=== PATIENT | female | born 1985 | race Caucasian/White ===

== ENCOUNTER 2016-10-14 19:35 | Inpatient (IN) | payer BC ==
[~2016-10-14] VITALS: Ht 157.5 cm; Wt 100.3 kg
[2016-10-14 20:27] VITALS: BP 117/69; PULSE 76; RESP 18; Ht 157.5 cm; Wt 100.3 kg
[2016-10-14] MEDS ORDERED: PRENAT PO (20:40)
--- NOTE | 2016-10-14 23:27 | RADRPT ---
PROCEDURE: OB ultrasound for biophysical profile CLINICAL INDICATION: Labor. TECHNIQUE: Multiple sonographic images of the pelvis were obtained. Transabdominal views of the g ravid uterus are available for review. The images were reviewed on a PACS workstation. COMPARISON: None FINDINGS: breathing movement = 2/2 tone = 2/2 motion = 2/2 Amniotic fluid = 2/2 JOBY = 16.1 cm Single live intrauterine in cephalic presentation with cardiac activity (136 bpm). Anterior placenta, grade 2. IMPRESSION: 1. Single viable intrauterine gestation. 2. Biophysical profile = 8/8. 3. JOBY = 16.1 cm. RPTAT: HTAR .Jeb Garcia MD, Date Time Electronically viewed and signed by .Jeb Garcia MD, MD on 10/14/2016 23:27 .R/
[2016-10-15] MEDS ORDERED: BUTORPHANOL 2 MG INJ IV PRN ×2 (01:00)
[2016-10-15] MEDS ORDERED: MISOPROSTOL 200 MCG TAB PR PRN (01:00)
[2016-10-15] MEDS ORDERED: LACTATED RINGER'S 1,000 ML IV PRN (01:00)
[2016-10-15] MEDS ORDERED: OXYTOCIN 30 UNITS/LR 500 ML IV PRN (01:00)
[2016-10-15] MEDS ORDERED: CARBOPROST 250 MCG INJ IM PRN (01:00)
[2016-10-15] MEDS ORDERED: OXYTOCIN 30 UNITS/LR 500 ML IV SCH ×3 (01:00→23:00)
[2016-10-15] MEDS ORDERED: METHYLERGONOVINE 0.2 MG INJ IM PRN (01:00)
[2016-10-15] MEDS ORDERED: AMPICILLIN 2 GM/NS (PMX) 100 ML IV ONE (01:00)
[2016-10-15] MEDS ORDERED: IBUPROFEN 600 MG TAB PO PRN (01:00)
[2016-10-15] MEDS ORDERED: LIDOCAINE 1% (MPF) 30 ML INJ INJ PRN (01:00)
[2016-10-15] MEDS: LACTATED RINGER'S 1,000 ML IV SCH ×4 (01:53→18:05)
[2016-10-15 02:10] LABS: BASOPHILS % 0.1 % (0.0-2.0); EOSINOPHILS # 0.1 10^3/ul (0.0-0.5); EOSINOPHILS % 0.5 % (0.0-7.0); HEMATOCRIT 38.4 % (37.0-47.0); HEMOGLOBIN 13.2 g/dl (12.0-16.0); LYMPHOCYTES # 2.6 10^3/ul (0.8-2.9); LYMPHOCYTES % 19.3 % (15.0-51.0); MEAN CORPUSCULAR HGB CONC 34.4 g/dl (32.0-37.0); MEAN CORPUSCULAR VOLUME 87.3 fl (82.0-101.0); MEAN PLATELET VOLUME 11.8 fl (7.4-10.4); MONOCYTE # 0.8 10^3/ul (0.3-0.9); MONOCYTES % 6.2 % (0.0-11.0); NEUTROPHIL # 9.9 10^3/ul (1.6-7.5); NEUTROPHILS % 73.4 % (39.0-77.0); PLATELET COUNT 176 10^3/UL (140-415); RED CELL DISTRIBUTION WIDTH 13.1 % (11.5-14.5); WHITE BLOOD COUNT 13.5 10^3/ul (4.8-10.8)
[2016-10-15 02:28] LABS: INR 0.91; PROTIME 12.2 Sec (12.2-14.2)
[2016-10-15 02:29] LABS: PARTIAL THROMBOPLASTIN TIME 25.4 Sec (25.0-35.0)
[2016-10-15] MEDS ORDERED: AMPICILLIN 1 GM/NS (PMX) 50 ML IV SCH (05:00)
[2016-10-15] MEDS: AMPICILLIN 1 GM/NS (PMX) 50 ML IV SCH ×5 (06:02→22:03)
[2016-10-15] MEDS ORDERED: FENTAnyl 2MCG/ML-ROPIV 0.2% 100 ML ONE (06:30)
[2016-10-15] MEDS ORDERED: HYDROmorphONE 1 MG/ML SYG IV PRN ×2 (07:00)
[2016-10-15] MEDS ORDERED: DIPHENHYDRAMINE 50 MG INJ IV PRN (07:00)
[2016-10-15] MEDS ORDERED: NALOXONE (0.4 MG/ML) INJ IV PRN (07:00)
[2016-10-15] MEDS ORDERED: EPHEDrine SULFATE 50 MG/5 ML SYG ONE (07:00)
[2016-10-15] MEDS: ONDANSETRON 4 MG INJ IV PRN (07:36)
[2016-10-15] MEDS: FENTAnyl 2MCG/ML-ROPIV 0.2% 100 ML BAG EPI SCH ×2 (07:36→14:05)
[2016-10-16] MEDS: FENTAnyl 2MCG/ML-ROPIV 0.2% 100 ML BAG EPI SCH (00:34)
[2016-10-16] MEDS: AMPICILLIN 1 GM/NS (PMX) 50 ML IV SCH ×2 (02:00→05:55)
[2016-10-16] MEDS: LACTATED RINGER'S 1,000 ML IV SCH (02:50)
[2016-10-16] MEDS: ONDANSETRON 4 MG INJ IV PRN (04:55)
[2016-10-16] MEDS ORDERED: MINERAL OIL LIGHT 10 ML VIAL TOP ONE (06:30)
--- NOTE | 2016-10-16 06:42 | HP ---
Date/Time of Note Date/Time of Note DATE: 10/16/16 TIME: 06:37 OB - History Hx of Present Free Text/Dictation 30 y.o primigravida came in c/o uterine contractions with intact membrane. EFM shows u.c 2-5min apart which was mild in intensity admitted for expectant management. GBS pos initial vag exam 1/80%/-3 Chief Complaint: u.c's Estimated Due Date: Oct 23, 2016 : 1 Para: 0 Spontaneous : 0 Therapeutic : 0 Care: Good Care Ultrasounds: Normal mid trimester US Obstetrical Complications: None Medical Complications: None Past Family/Social History * Past Medical, Surgical, Family and Obstetric Histories reviewed from chart. Blood Type: A+ Rubella: immune RPR/VDRL: Negative GBS Status: Positive HBsAG: Negative OB Admission Exam Vital Signs Vital Signs Vital Signs Date Time Temp Pulse Resp B/P Pulse Ox O2 Delivery O2 Flow Rate FiO2 10/14/16 20:27 98.3 76 18 117/69 Room Air Physical Exam HEENT: WNL Heart: Rhythm Normal Lungs: Clear, Equal Abdomen: WNL Extremities: Normal Reflexes: Normal Cervical Dilatation: 1cm Effacement: 75% Station: -3 Membranes: Intact Amniotic Fluid: Unevaluable Heart Rate: 130's Accelerations: Accelerations Present Decelerations: No Decelerations Varibility: Moderate Contractions on Admission: < 5 Minutes Apart Intensity: Mild Last 72 hours Lab Results CBC & BMP 10/15/16 01:40 OB Assessment/Plan Reason for admission: other (in early labor) Plan: Expectant Management EDSON PALMA MD Oct 16, 2016 06:42
--- NOTE | 2016-10-16 06:46 | LDN ---
Date/Time of Note Date/Time of Note DATE: 10/16/16 TIME: 06:44 Delivery Summary normal vaginal delivery Weeks of Gestation 39weeks Placenta Delivered: Spontaneously Meconium: Light Episiotomy: No Laceration repair: vaginal and rt inner labia minora repaired with 00 ch gut Anesthesia type: Epidural Sponge & Needle done & correct: Yes All needle counts correct: Yes Any foreign bodies felt in the: No Problems: Infant Delivery Information Sex Sex: female Apgars 1 Minute: 8 5 Minute: 9 Suctioning Nose & mouth suctioned at jose: Yes Delee suction performed: Yes Umbilical Cord Umbilical cord with: 3 Vessels Cord presentations: no nuchal cord Cord Blood was obtained: Yes Mother & Baby Disposition Disposition Mom & Baby to Maternity; Good: Yes Mom transferred to: Other () Baby to NICU: No EDSON PALMA MD Oct 16, 2016 06:46
[2016-10-16] MEDS: SENNA/DOCUSATE NA (8.6MG/50MG) TAB PO SCH ×2 (08:55→21:19)
[2016-10-16 09:00] VITALS: BP 107/60; PULSE 85; RESP 18
[2016-10-16] MEDS ORDERED: LANOLIN 7 GM TUBE TOP PRN (09:00)
[2016-10-16] MEDS ORDERED: BENZOCAINE 20% 56 ML SPRAY TOP PRN (09:00)
[2016-10-16] MEDS ORDERED: WITCH HAZEL/GLYCERIN PAD PR PRN (09:00)
[2016-10-16] MEDS ORDERED: ZOLPIDEM 5 MG TAB PO PRN (09:00)
[2016-10-16] MEDS ORDERED: OXYTOCIN 30 UNITS/LR 500 ML IV PRN (09:00)
[2016-10-16] MEDS ORDERED: CARBOPROST 250 MCG INJ IM PRN (09:00)
[2016-10-16] MEDS ORDERED: MISOPROSTOL 200 MCG TAB PR PRN (09:00)
[2016-10-16] MEDS ORDERED: OXYCODONE/ASPIRIN (4.88/325) TAB PO PRN ×2 (09:00)
[2016-10-16] MEDS ORDERED: METHYLERGONOVINE 0.2 MG INJ IM PRN (09:00)
[2016-10-16] MEDS: IBUPROFEN 600 MG TAB PO SCH ×3 (11:22→23:51)
[2016-10-16 15:30] VITALS: BP 101/59; PULSE 69; RESP 18
[2016-10-16 19:45] VITALS: BP 99/62; PULSE 70; RESP 17
[2016-10-17 04:00] VITALS: BP 105/61; PULSE 68; RESP 18
[2016-10-17] MEDS: IBUPROFEN 600 MG TAB PO SCH ×4 (05:33→23:31)
[2016-10-17 07:07] LABS: BASOPHILS % 0.2 % (0.0-2.0); EOSINOPHILS # 0.3 10^3/ul (0.0-0.5); EOSINOPHILS % 2.3 % (0.0-7.0); HEMATOCRIT 33.2 % (37.0-47.0); LYMPHOCYTES # 3.2 10^3/ul (0.8-2.9); LYMPHOCYTES % 26.2 % (15.0-51.0); MEAN CORPUSCULAR HEMOGLOBIN 29.4 pg (29.0-33.0); MEAN CORPUSCULAR HGB CONC 33.1 g/dl (32.0-37.0); MEAN CORPUSCULAR VOLUME 88.8 fl (82.0-101.0); MEAN PLATELET VOLUME 12.3 fl (7.4-10.4); MONOCYTE # 0.8 10^3/ul (0.3-0.9); MONOCYTES % 6.7 % (0.0-11.0); NEUTROPHIL # 7.7 10^3/ul (1.6-7.5); PLATELET COUNT 155 10^3/UL (140-415); RED BLOOD COUNT 3.74 10^6/ul (4.20-5.40); RED CELL DISTRIBUTION WIDTH 13.3 % (11.5-14.5); WHITE BLOOD COUNT 12.1 10^3/ul (4.8-10.8)
[2016-10-17 08:00] VITALS: BP 103/64; PULSE 69; RESP 20
[2016-10-17] MEDS: SENNA/DOCUSATE NA (8.6MG/50MG) TAB PO SCH ×2 (09:31→22:09)
--- NOTE | 2016-10-17 14:41 | PN ---
Date/Time of Note Date/Time of Note DATE: 10/17/16 TIME: 14:38 OB Subjective Subjective Subjective had b.m no c/o OB Objective Objective Objective vss afebrile fundus firm lochia min ext neg for tenderness OB Assessment/Plan Other Assessment: stable post normal vaginal delivery Induction Method: per Pitocin Protocol Other plan: d/s home in am EDSON PALMA MD Oct 17, 2016 14:41
[2016-10-17 16:00] VITALS: BP 116/73; PULSE 73; RESP 18
[2016-10-17 20:00] VITALS: BP 99/63; PULSE 78; RESP 18
[2016-10-18 05:37] VITALS: BP 112/76; PULSE 73; RESP 18
[2016-10-18] MEDS: IBUPROFEN 600 MG TAB PO SCH ×2 (06:27→12:42)
[2016-10-18 07:45] VITALS: BP 112/69; PULSE 68; RESP 20
[2016-10-18] MEDS ORDERED: DIPHTH/TET/ACEL PERTUSS (ADULT) 0.5 ML VIAL IM* ONE (09:00)
[2016-10-18] MEDS: SENNA/DOCUSATE NA (8.6MG/50MG) TAB PO SCH (09:57)
[2016-10-18 15:00] VITALS: BP 114/68; PULSE 72; RESP 18
--- NOTE | 2016-10-18 15:24 | PD.PPDC ---
DRAGLINE ENGINEER Discharge Instruction Diagnosis Final Diagnosis: s/p vaginal delivery Condition Patient Condition: Stable Diet Diet: Resume Regular Diet Activity/Restrictions Activity: May Shower Restrictions: No Sexual Activity Nothing in the Vagina No [place] No Tampons, douche Follow-up Follow-up with Physician: 6, Week/Weeks Return to clinic for STATE TESTED NURSING ASSISTANT Instructions: Fever greater than 101 Chills Worsening abdominal pain Excessive Vaginal Bleeding More than 2 pads per hour Unable to tolerate diet EDSON PALMA MD Oct 18, 2016 15:24
--- NOTE | 2016-10-18 15:31 | DS ---
Date/Time of Note Date/Time of Note DATE: 10/18/16 TIME: 15:26 Obstetrical Discharge Record Final Diagnosis Final Diagnosis: Term delivered Vaginal Delivery Obstetrical Delivery: Spontaneous Complications Augmentation: Yes Condition on Discharge Physical Assessment Last Vitals: vss afebrile Voiding: Yes Bowel Movement: Yes Breast: Soft, non-tender Fundus: Firm Calf Tenderness: No Patient Condition: Stable EDSON PALMA MD Oct 18, 2016 15:31
== END 2016-10-18 15:45 | disposition home or self-care (01) | DRG 775 ==
LOC: OBT 19:35 → L-D 19:36 → OBT 10-15 00:42 → L-D 10-15 00:43 → PP1 10-16 08:28
PROVIDERS: ADMIT Obstetrics & Gynecology; ATTEND Obstetrics & Gynecology
PROC: 10E0XZZ Delivery of Products of Conception, External Approach (ICD-10-PCS; principal; 2016-10-16)
PROC: 0UQMXZZ Repair Vulva, External Approach (ICD-10-PCS; 2016-10-16)
PROC: 0UQGXZZ Repair Vagina, External Approach (ICD-10-PCS; 2016-10-16)
PROC: 3E00X4Z Introduction of Serum, Toxoid and Vaccine into Skin and Mucous Membranes, External Approach (ICD-10-PCS; 2016-10-16)
DX: O71.4 Obstetric high vaginal laceration alone (principal); O70.0 First degree perineal laceration during delivery; Z23 Encounter for immunization; Z3A.39 39 weeks gestation of pregnancy; Z37.0 Single live birth
CPT/HCPCS: 62319; 76818; 85025; 85610; 85730; 86592; 86900; 86901; 87340; 90715; 99464; G0463; J0290; J0595; J2405; J2590; J3010; J7120

== ENCOUNTER 2018-06-21 12:48 | Emergency (ER) | payer BC, MEDICAID, OTHER ==
[~2018-06-21] VITALS: Wt 99.8 kg
[~2018-06-21 12:48] MED LIST: PRENAT PO
[2018-06-21] MEDS ORDERED: IOHEXOL 300MG/ML 150 ML BTL ONE (16:24)
[2018-06-21] MEDS ORDERED: SOD CHLORIDE 0.9% 100 ML ONE (16:24)
--- NOTE | 2018-06-21 16:27 | ERD ---
ER Documentation Chief Complaint Chief Complaint eye jaundince, dark urines since wednesday HPI 32-year-old female presenting with yellowing of her eyes times 4 days with dark urine times 3 days. Patient denies any abdominal pain or fevers. Has not taken medications for symptoms. She stated about a month ago she was drinking very heavily however has not recently. Denies any chest pain or shortness of breath. has not taken medications for symptoms. Denies other medical problems. NKDA. Surgical history: Csection. Social history denies ROS All systems reviewed and are negative except as per history of present illness. Medications Home Meds Reported Medications Multivit/Min/Fol Ac/Iron/Pren* ( S*) 1 Tab Tab, 1 TAB PO DAILY, TAB 10/14/16 Allergies Allergies: Coded Allergies: No Known Allergy (Unverified , 10/14/16) PMhx/Soc Medical and Surgical Hx: pt denies Medical Hx, pt denies Surgical Hx Hx Alcohol Use: Yes (occasional) Hx Substance Use: No Hx Tobacco Use: No Smoking Status: Never smoker FmHx Family History: No diabetes, No coronary disease, No other Physical Exam Vitals Vital Signs Date Temp Pulse Resp B/P (MAP) Pulse Ox O2 O2 Flow FiO2 Time Delivery Rate 06/21/18 98.1 91 18 146/95 99 12:57 (112) Physical Exam GENERAL: The patient is well-appearing, well-nourished, in no acute distress HEENT: Atraumatic. Conjunctivae are pink. Pupils equal, round, and reactive to light. Yellowing of bilateral eyes. Tympanic membranes clear bilaterally. Oropharynx clear. NECK: C-spine is soft and supple. There is no meningismus. There is no cervical lymphadenopathy. CHEST: Clear to auscultation bilaterally. There are no rales, wheezes or rhonchi. HEART: Regular rate and rhythm. No murmurs, clicks, rubs or gallops. ABDOMEN:Soft, nontender and nondistended. Good bowel sounds. No rebound or guarding. No gross peritonitis. No gross organomegaly or masses. Result Diagram: 06/21/18 1416 06/21/18 1415 Results 24 hrs Laboratory Tests Test 06/21/18 14:15 06/21/18 14:16 Urine Color ALMITA Urine Clarity CLEAR Urine pH 5.0 Urine Specific [place] 1.027 Urine Ketones NEGATIVE mg/dL Urine Nitrite NEGATIVE mg/dL Urine Bilirubin 2+ mg/dL Urine Urobilinogen 2+ mg/dL Urine Leukocyte Esterase NEGATIVE Roman/ul Urine Microscopic RBC 1 /HPF Urine Microscopic WBC 5 /HPF Urine Squamous Epithelial Cells FEW /HPF Urine Bacteria FEW /HPF Urine Mucus MODERATE /HPF Urine Hemoglobin NEGATIVE mg/dL Urine Glucose NEGATIVE mg/dL Urine Total Protein 1+ mg/dl Urine Test NEGATIVE Sodium Level 140 mmol/L Potassium Level 3.6 mmol/L Chloride Level 104 mmol/L Carbon Dioxide Level 22 mmol/L Anion Gap 14 Blood Urea Nitrogen 5 mg/dl Creatinine 0.71 mg/dl Est Glomerular Filtrat Rate mL/min > 60 mL/min Glucose Level 115 mg/dl Calcium Level 9.3 mg/dl Total Bilirubin 5.8 mg/dl Direct Bilirubin 4.70 mg/dl Indirect Bilirubin 1.1 mg/dl Aspartate Amino Transf (AST/SGOT) 239 IU/L Alanine Aminotransferase (ALT/SGPT) 110 IU/L Alkaline Phosphatase 252 IU/L Total Protein 7.5 g/dl Albumin 3.8 g/dl Globulin 3.70 g/dl Albumin/Globulin Ratio 1.02 Lipase 667 U/L Hepatitis B Surface Antigen NEGATIVE Hepatitis B Core Total Antibody NEGATIVE Hepatitis C Antibody NEGATIVE White Blood Count 5.0 10^3/ul Red Blood Count 4.18 10^6/ul Hemoglobin 13.5 g/dl Hematocrit 38.3 % Mean Corpuscular Volume 91.6 fl Mean Corpuscular Hemoglobin 32.3 pg Mean Corpuscular Hemoglobin Concent 35.2 g/dl Red Cell Distribution Width 18.7 % Platelet Count 121 10^3/UL Mean Platelet Volume 12.3 fl Immature Granulocytes % 0.400 % Neutrophils % 54.0 % Lymphocytes % 38.6 % Monocytes % 6.0 % Eosinophils % 0.6 % Basophils % 0.4 % Nucleated Red Blood Cells % 0.0 /100WBC Immature Granulocytes # 0.020 10^3/ul Neutrophils # 2.7 10^3/ul Lymphocytes # 1.9 10^3/ul Monocytes # 0.3 10^3/ul Eosinophils # 0.0 10^3/ul Basophils # 0.0 10^3/ul Nucleated Red Blood Cells # 0.0 10^3/ul Current Medications Medications Dose Sig/Theresa Start Time Status Last (Trade) Ordered Route PRN Stop Time Admin Dose Reason Admin IV Flush 10 ml STK-MED 06/21/18 DC (NS 10 ml) ONCE .ROUTE 16:24 06/21/18 16:25 Sodium 100 ml @ ud STK-MED 06/21/18 DC Chloride ONCE .ROUTE 16:24 06/21/18 16:25 Iohexol 150 ml STK-MED 06/21/18 DC (Omnipaque ONCE .ROUTE 16:24 06/21/18 300mg/ ml) 16:25 Procedures/MDM DIAGNOSTIC IMAGING REPORT Patient: KOREY SHANKAR : 1985 Age: 32 Sex: F MR #: [id number] DOS: 06/21/18 1401 Ordering MD: BOBY VERDIN PA-C Location: [facility] Room/Bed: PROCEDURE: US Abdomen (right upper quadrant). CLINICAL INDICATION: Right upper quadrant abdomen pain. TECHNIQUE: Multiple real-time longitudinal and transverse images of the right upper quadrant of the abdomen were acquired utilizing a curved array transducer. Images were reviewed on a high-resolution PACS workstation. COMPARISON: None FINDINGS: The liver is enlarged and diffusely increased in echogenicity. There is no focal hepatic lesion. The gallbladder contains gallstones and there is mild gallbladder wall thickening measuring from 41 mm. There is no pericholecystic fluid collection. The bile ducts are normal with the common bile duct measuring 4.6 mm in diameter. The visualized portions of the pancreas are unremarkable with obscuration of the tail of the pancreas. No free fluid is present. The right kidney measures 12.3 x 3.8 cm. There is normal echogenicity of the right kidney. There is no perinephric fluid collection. No hydronephrosis, mass, or calculus is seen. IMPRESSION: 1. Hepatomegaly. 2. Fatty metamorphosis of the liver. 3. Gallstones in the gallbladder and gallbladder wall thickening. This may indicate cholecystitis. Clinical correlation is advised. 4. Otherwise unremarkable right upper quadrant abdomen ultrasound. ER Course: Patient care transferred to Dr. Johns. CT results are pending at the time of transfer. Patient stable the time of. MDM: 32-year-old female presenting with elevated liver enzymes and elevated bilirubin. Patient has concerning findings of cholecystitis on ultrasound however does not have epigastric pain. CT scan is pending at this time to determine cause of elevated liver enzymes. Patient is stable at the time of my past son and will be reevaluated by Dr. Johns. All questions answered at the time of my past on Attending addendum: I evaluated the patient myself and she is a 32-year-old female presenting with yellowing of her sclera for the past 4 days. Otherwise she is completely asymptomatic. Physical exam: INITIAL VITAL SIGNS: Reviewed by me GENERAL: Well appearing, non toxic, speaking in full sentences. HEENT: Atraumatic, Moist mucous membranes. Scleral icterus noted. PERRLA NECK: Supple. RESPIRATORY: No respiratory distress. Clear to auscultation bilaterally CV: RRR ABDOMEN: Soft, nontender, nondistended. No hepatosplenomegaly palpable but limited by body habitus EXTREMITIES: No clubbing or cyanosis. No edema SKIN: Warm, dry. No jaundice. NEUROLOGIC: A&Ox4. No facial asymmetry. Normal speech. MDM: Patient is presenting with new onset scleral icterus but is otherwise completely asymptomatic. I reviewed her labs and she has transaminitis and mild thrombocytopenia with elevated bilirubin. Hepatitis panel did not show any significant abnormalities. Ultrasound of the abdomen and CT scan of the abdomen and pelvis were done, only revealing fatty liver. No other acute abnormalities were noted. No masses were noted. I feel the patient is stable for discharge with continued outpatient follow-up. Recommended she abstain from any alcohol or any liver toxic medications. Patient is agreeable with this plan. Advised to return for any worsening symptoms. Departure Diagnosis: Primary Impression: Hyperbilirubinemia Additional Impressions: Scleral icterus Transaminitis Fatty liver Thrombocytopenia Condition: Stable ANGELI VERDIN PA-C Jun 21, 2018 16:27 BETTY JOHNS MD Jun 21, 2018 19:17
[2018-06-21 19:31] VITALS: BP 133/88; PULSE 72; RESP 16
== END 2018-06-21 19:32 | disposition home or self-care (01) ==
LOC: FTE 12:48
DX: R17 Unspecified jaundice (principal); H15.89 Other disorders of sclera; R74.0 Nonspecific elevation of levels of transaminase and lactic acid dehydrogenase [LDH]; D69.6 Thrombocytopenia, unspecified
CPT/HCPCS: 36415; 74177; 76705; 80053; 81001; 83690; 84703; 85025; 86704; 86709; 86803; 87340; Q9967; Z7502; Z7610

== ENCOUNTER 2018-12-15 18:31 | Emergency (ER) | payer OTHER ==
[~2018-12-15] VITALS: Ht 157.5 cm; Wt 96.4 kg
[~2018-12-15 18:31] MED LIST changes: +ACET500C5 PO
[2018-12-15 18:49] VITALS: BP 148/95; PULSE 90; RESP 16; Ht 157.5 cm; Wt 96.4 kg
== END 2018-12-15 22:09 | disposition home or self-care (01) ==
LOC: FTE 18:31
DX: S00.83XA Contusion of other part of head, initial encounter (principal); S00.31XA Abrasion of nose, initial encounter; W20.8XXA Other cause of strike by thrown, projected or falling object, initial encounter; Y92.89 Other specified places as the place of occurrence of the external cause
CPT/HCPCS: 70486; 81025; Z7502